=== PATIENT | female | born 1985 | race African-American/Black ===

== ENCOUNTER 2017-03-25 19:45 | Emergency (ER) | payer OTHER ==
[~2017-03-25] VITALS: Ht 167.6 cm; Wt 168.0 kg
[2017-03-25 19:48] VITALS: BP 147/74
[2017-03-25] MEDS ORDERED: ARIP2TAB3 PO (19:52)
== END 2017-03-25 20:54 | disposition home or self-care (01) ==
LOC: ER 19:45
DX: J06.9 Acute upper respiratory infection, unspecified (principal); J32.9 Chronic sinusitis, unspecified; F41.9 Anxiety disorder, unspecified; F31.9 Bipolar disorder, unspecified
CPT/HCPCS: 99283